=== PATIENT | male | born 1935 | race African-American/Black ===

== ENCOUNTER → 2018-09-06 | Outpatient (REF) | payer MEDICARE ==
[~2018-09-06] MED LIST: ACYCLOVIR200 MG PO; BAYER LOW81 MG PO; CELEBREX200 MG PO; ENALAPRIL2.5 MG PO; FEOSOL65 MG PO; FLUARIX QUADRIV1 IN1 IM; FLULAVAL IM; FLUZONE SPLT1 M1 IM; GLIPIZIDE5 MG PO; GLUCOTROL5 MG PO; HYZAAR1 TA2 PO; LORTAB 5 PO; LORTAB 7.57.5 MG PO; METOPROL TAR25 MG PO; PRAVASTATIN20 MG PO; PRAVASTATIN80 MG PO; VIAGRA100 MG PO; ZPAK PO; ZYRTEC-D AL1 OR; ZYRTEC-D ALG PO
[2018-09-06 12:35] LABS: ALKALINE PHOSPHATASE 80 u/l (38-126); ANION GAP 14 (6-22 (CALC)); BILIRUBIN, TOTAL 0.8 mg/dL (0.0-1.4); BUN 15 mg/dL (8-23); BUN/CREATININE RATIO 17 (12-20 (CALC)); CALCULATED LDLCHOLESTEROL 66 mg/dL (62-129 (CALC)); CARBON DIOXIDE 30 mmol/l (22-30); CHLORIDE 102 mmol/l (95-108); CREATININE 0.9 mg/dL (0.7-1.3); GFR > 60 ML/MIN (>=60 (CALC)); GFR FOR AFR.AMER. > 60 ML/MIN (>=60 (CALC)); HDL CHOLESTEROL 42 mg/dL (>=40); POTASSIUM 3.6 mmol/l (3.5-5.1); SGOT/AST 23 u/l (19-48); SODIUM 141 mmol/l (137-146); TOTAL CHOLESTEROL 127 mg/dl (0-199); TOTAL PROTEIN 6.8 g/dL (6.3-8.2); TOTAL TRIGLYCERIDES 95 mg/dl (30-149); VLDL CHOLESTROL 19 mg/dl (0-38 (CALC))
== END | disposition home or self-care (01) ==
LOC: LAB 11:18
PROVIDERS: ATTEND Internal Medicine Geriatric Medicine
DX: E11.9 Type 2 diabetes mellitus without complications (principal); E78.5 Hyperlipidemia, unspecified; I10 Essential (primary) hypertension

== ENCOUNTER 2019-08-29 | Emergency (ER) | payer MEDICARE ==
[2019-08-29 17:09] LABS: HEMATOCRIT 36.3 % (39.0-50.0); IMMATURE GRANULOCYTES 0.2 % (0.0-5.0); MEAN CELL VOLUME 76.7 fL CALC (80.0-100.0); MEAN CORPUSCULAR HGB 25.4 pG CALC (26.0-32.0); MEAN CORPUSCULAR HGB CONC 33.1 g/L CALC (32.0-36.0); NEUT# 3.02 thou/uL (1.82-7.42); RED BLOOD COUNT 4.73 mill/uL (4.70-6.10); RED CELL DISTRI WIDTH 17.9 % (11.5-15.5)
[2019-08-29 18:44] LABS: ALBUMIN 3.7 g/dL (3.2-5.0); BUN 14 mg/dL (8-23); BUN/CREATININE RATIO 26 (12-20 (CALC)); CARBON DIOXIDE 25 mmol/l (22-30); CHLORIDE 102 mmol/l (95-108); CREATININE 0.6 mg/dL (0.7-1.3); GFR > 60 ML/MIN (>=60 (CALC)); GFR FOR AFR.AMER. > 60 ML/MIN (>=60 (CALC)); SODIUM 137 mmol/l (137-146)
[2019-08-29 18:46] LABS: ALKALINE PHOSPHATASE 672 u/l (38-126); ANION GAP 14 (6-22 (CALC)); BILIRUBIN, TOTAL 8.9 mg/dL (0.0-1.4); POTASSIUM 3.9 mmol/l (3.5-5.1); SGOT/AST 164 u/l (19-48)
[2019-08-29 19:27] LABS: TSH, 3RD GENERATION 2.54 uIU/mL (0.47 - 4.68)
[2019-08-29 20:04] LABS: URINE BLOOD DIPSTICK LARGE (NEGATIVE); URINE COLOR YELLOW; URINE GLUCOSE - DIPSTICK >=1000 mg/dL (NEGATIVE); URINE KETONE 15 mg/dL (NEGATIVE); URINE LEUK ESTERASE NEGATIVE (NEGATIVE); URINE NITRITE - DIPSTICK NEGATIVE (Negative); URINE PROTEIN - DIPSTICK 30 mg/dL (NEG-TRACE); URINE SPECIFIC GRAVITY 1.025; URINE UROBILINOGEN - DIPSTICK 0.2 E.U./dL (0.2)
[2019-08-29 20:24] LABS: URINE BILIRUBIN - DIPSTICK MODERATE (NEGATIVE)
[2019-08-29 20:33] LABS: URINE RBC TNTC RBC/hpf (0-5); URINE SQUAMOUS EPITHELIAL CELL FEW EPI/hpf (0-FEW)
== END 2019-08-29 21:55 | disposition short-term general hospital (02) ==
PROVIDERS: Family Medicine
DX: K86.9 Disease of pancreas, unspecified (principal); K83.1 Obstruction of bile duct; E11.9 Type 2 diabetes mellitus without complications; I10 Essential (primary) hypertension

== ENCOUNTER 2021-08-24 21:59 | Emergency (ER) | payer MEDICARE ==
[~2021-08-24] VITALS: Ht 177.8 cm; Wt 68.0 kg
[2021-08-24 22:33] LABS: HEMATOCRIT 32.4 % (39.0-50.0); HEMOGLOBIN 9.7 g/dl (14.0-18.0); IMMATURE GRANULOCYTES 0.4 % (0.0-5.0); MEAN CORPUSCULAR HGB 27.2 pG CALC (26.0-32.0); MEAN CORPUSCULAR HGB CONC 29.9 g/dL CAL (32.0-36.0); NEUT# 20.55 thou/uL (1.82-7.42); RED BLOOD COUNT 3.57 mill/uL (4.70-6.10); RED CELL DISTRI WIDTH 23.1 % (11.5-15.5)
[2021-08-24 22:45] LABS: AMYLASE 41 u/l (30-110); BUN 24 mg/dL (8-23); BUN/CREATININE RATIO 32 (12-20 (CALC)); CHLORIDE 113 mmol/l (95-108); CREATININE 0.8 mg/dL (0.7-1.3); GFR > 60 ML/MIN (>=60 (CALC)); GFR FOR AFR.AMER. > 60 ML/MIN (>=60 (CALC)); POTASSIUM 3.8 mmol/l (3.5-5.1); TOTAL PROTEIN 5.6 g/dL (6.3-8.2)
[2021-08-24 22:50] LABS: ALBUMIN 2.3 g/dL (3.2-5.0); ALKALINE PHOSPHATASE 295 u/l (38-126); ANION GAP 21 (6-22 (CALC)); BILIRUBIN, TOTAL 1.8 mg/dL (0.0-1.4); CARBON DIOXIDE 16 mmol/l (22-30); SGOT/AST 129 u/l (19-48); SODIUM 146 mmol/l (137-146)
[2021-08-24 22:54] LABS: MEAN CELL VOLUME 90.8 fL CALC (80.0-100.0); MYOGLOBIN 143 ng/mL (0 - 121)
[2021-08-25] MEDS ORDERED: FINASTERIDE5 MG PO (00:48)
[2021-08-25] MEDS ORDERED: ELIQUIS5 MG PO (00:48)
[2021-08-25] MEDS ORDERED: HUMALOG KW100 UNIT/M (00:48)
[2021-08-25 06:07] VITALS: BP 82/56
== END 2021-08-25 06:52 | disposition expired ==
LOC: ED 21:59
PROVIDERS: Emergency Medicine
DX: A41.9 Sepsis, unspecified organism (principal); R65.20 Severe sepsis without septic shock; R79.89 Other specified abnormal findings of blood chemistry; R09.02 Hypoxemia; I10 Essential (primary) hypertension; E11.9 Type 2 diabetes mellitus without complications; C25.9 Malignant neoplasm of pancreas, unspecified; Z66 Do not resuscitate; Z86.73 Personal history of transient ischemic attack (TIA), and cerebral infarction without residual deficits; Z79.4 Long term (current) use of insulin; Z20.822 Contact with and (suspected) exposure to COVID-19